=== PATIENT | female | born 1970 | race Caucasian/White ===

== ENCOUNTER 2025-10-09 16:10 | Outpatient (AMB) | payer OTHER, SELFPAY ==
--- NOTE | 2025-10-09 16:12 | A.OFFVIS_ITS ---
Intake Visit Reasons: seen 2022, vertigo? Allergies No Known Allergies Allergy (Verified 10/05/25 08:38) Medication List - Last Reconciled 10/09/25 by Magali Kovacs MD atorvastatin 40 mg PO DAILY clonazepam 1 mg PO BID PRN duloxetine 60 mg PO DAILY hydroxyzine HCl 25 mg PO BID levothyroxine 100 mcg PO DAILY trazodone 50 mg PO BEDTIME HPI Comments Details: 55yrs old woman with h/o migraines that have decreased with menopause , currently 1-2/ month to 1 in 3 months. They last few hours to 2-3 days. Has not had any Sumatriptan in afew years. She is sleeping well. She has always had balance problems and 2 months ago she had an episode where she was very unsteady and was falling that lasted 10-15 minutes. It was spinning around and was having trouble walking. . H/O problems with panic and phobias with fear of dying. She used to get migraines with her periods lasting 5-7 days with sonophobia and occasional nausea. Sumatriptan works well for her migraine. She was on Propranolol, amitriptyline and Topamax in the past. Gets nausea and sound sensitivity with migraine. She is having short term memory problems. Misplaces things. Drives fine. Not repetitive. CT scan of the head on 02/01/16 was normal. Hearing is fine and no tinnitus. No previous spells of vertigo. [facility] Medical History (Updated 10/09/25 @ 16:21 by Magali Kovacs MD) MCI (mild cognitive impairment) Migraine Anxiety and depression Review of Systems Const Details: Sleep:? Difficulty getting to sleep?denies.? Difficulty maintaining sleep?denies? .? Urge to move legs?denies.? Teeth grinding?denies.? Shouting or Kicking during sleep?denies.? Abnormal behavior during sleep?denies.? Excessive sleep?denies.? Snoring?denies.? Daytime sleepiness?denies.? ?? General/Constitutional:? Change in appetite?denies.? Chills?denies.? Fatigue?denies.? Fever?denies .? Weight gain?denies.? Weight loss?denies.? ?? Ophthalmologic:? Blurred vision?denies.? Diminished visual acuity?denies.? ?? ENT:? Stuffiness?denies.? Decreased hearing?denies.? Dry mouth?denies.? Ear pain?denies.? Nosebleed?denies.? Ringing in the ears?denies.? Sinus pain?denies .? Sore throat?denies.? Swollen glands?denies.? ?? Endocrine:? Cold intolerance?denies.? Excessive thirst?denies.? Frequent urination? denies.? Heat intolerance?denies.? ?? Respiratory:? Shortness of breath?denies.? Chest pain?denies.? Cough?denies.? ?? Breast:? Breast lump?denies.? Nipple discharge?denies.? ?? Cardiovascular:? Chest pain at rest?denies.? Chest pain with exertion?denies.? Claudication?denies.? Dizziness?denies.? Fluid accumulation in the legs?denies.? Irregular heartbeat?denies.? Palpitations?denies.? ?? Gastrointestinal:? Abdominal pain?denies.? Constipation?denies.? Diarrhea?denies.? Diffic ulty swallowing?denies.? Heartburn?denies.? Nausea?admits.? Rectal bleeding? denies.? ?? Hematology:? Easy bruising?denies.? Prolonged bleeding?denies.? ?? Genitourinary:? Frequent urination?denies.? Urgency?denies.? Incontinence?denies.? Erectile Dysfunction?denies.? ?? Musculoskeletal:? Neck pain?admits.? Back pain?denies.? Muscle aches?denies.? Painful joints?denies.? Sciatica?denies.? Weakness?denies.? ?? Podiatric:? Difficulty walking?denies.? Foot numbness?denies.? ?? Neurologic:? Difficulty swallowing?denies.? Balance difficulty?denies.? Coordination? normal.? Difficulty speaking?denies.? Dizziness?denies.? Fainting?denies.? Gait abnormality?denies.? Headache?that is chronic.? Loss of strength?denies.? Loss of use of extremity?denies.? Low back pain?denies.? Memory loss?denies.? Seizures?denies.? Tics?denies.? Tingling/Numbness?denies.? Transient loss of vision?denies.? Tremor?denies.? ?? Psychiatric:? Anxiety?admits.? Auditory/visual hallucinations?denies.? Delusions?denies .? Depressed mood?denies.? Stressors?denies.? Substance abuse?denies.? Suicidal thoughts?denies Physical Exam Neuro Other: General Examination: ? GENERAL APPEARANCE:?normal,?in no acute distress.? HEAD:?normocephalic,?atraumatic.? EYES:?sclera non-icteric,?conjunctiva clear.? EARS:?auditory canal clear,?tympanic membrane intact, clear.? NOSE:?no lesions.? ORAL CAVITY:?gums normal,?mucosa moist,?no lesions.? THROAT:?clear.? NECK/THYROID:?no cervical lymphadenopathy,?thyroid normal,?neck supple, full range of motion,?no carotid bruit.? SKIN:?no rashes,?no significant birthmarks.? HEART:?S1, S2 normal,?no murmurs.? LUNGS:?clear anteriorly and posteriorly.? CHEST:?no gross rib deformity,?clear to auscultation.? BACK:?normal exam of spine.? EXTREMITIES:?no edema.? PERIPHERAL PULSES:?normal.? PSYCH:?alert, oriented,?cognitive function intact,?cooperative with exam.? Neurological: ? Abnormal neurological findings:??none.? Mental Status:?alert and oriented X 3,?Normal attention, orientation, memory and affect.? Cranial Nerves:?Pupils are equal, round and reactive to light. Fundoscopy shows normal disc bilaterally. External occular muscles are intact. Visual de jesus are full, no ptosis. Face is symmetrical, no facial weakness or droop. Facial sensations are normal. Tongue protrudes in midline. Palate elevates symmetrically. Shoulder shrugging is normal..? Motor Examination:?Normal muscle tone, bulk and strength,?No atrophy or fasciculations,?No drift of the extended upper extremities,?Deep tendon reflexes are 2+?,?Plantars are flexor?.? Straight Leg Raising:?90 degrees.? Sensory Exam:?Normal light touch, temperature, pinprick, vibration and joint-position sensations?,?Rhomberg sign is absent.? Coordination:?no ataxia,?no titubation,?qoucgf-ki-bgqy, apng-nxvj-alei test and rapid alternating movements were normal.? Gait Exam:?Within normal limits.? Cerebellar Signs:?Lxjqkv-sw-vfls and wvnh-qz-gmbw is normal,?no dysdiadochokinesia?.? Extrapyramidal System:?No tremor, rigidity with normal facial expressions,?No bradykinesia, no bradyphrenia. Normal arm swing and posture. No propulsion or retropulsion.? Speech:?Normal,?no dysphasia or dysarthria..? Mini Mental Status Exam: ? Level of Consciousness:?Alert.? Orientation:?Knows correct year, month, date, day and season,?Knows correct city, county and state. Knows correct location and floor.? Registration:?Able to register 3 objects.? Attention:?Serial 7's performed accurately.? Recall:?Able to recall 3 out of 3 objects.? Language:?Normal spontaneous speech, fluency, repetition,naming, comprehension, reading and writing.? Total Score ?30/30.? Assessment & Plan Assessment & Plan (1) Migraine: Code(s): G43.909 - Migraine, unspecified, not intractable, without status migrainosus Category: Medical (2) MCI (mild cognitive impairment): Code(s): G31.84 - Mild cognitive impairment of uncertain or unknown etiology Category: Medical (3) Anxiety and depression: Code(s): F41.9 - Anxiety disorder, unspecified; F32.A - Depression, unspecified Category: Medical (4) Dizziness: Code(s): R42 - Dizziness and giddiness Category: Medical Plan MRI brain, Sumatriptan 100mg prn. EEG, Labs for memory Orders: Orders Vitamin B12 and Folate Today G31.84 - Mild cognitive impairment of uncertain or unknown etiology TSH reflex Free T4 Today G31.84 - Mild cognitive impairment of uncertain or unknown etiology EEG Routine Today G31.84 - Mild cognitive impairment of uncertain or unknown etiology MR head/brain wo con 4 Weeks G31.84 - Mild cognitive impairment of uncertain or unknown etiology, R42 - Dizziness and giddiness Coding Level of Care Code New Pt Level 5 (94821) Diagnoses Migraine G43.909 MCI (mild cognitive impairment) G31.84 Anxiety and depression F41.9; F32.A Dizziness R42
--- OUTSIDE RECORDS SUMMARY | 2025-10-09 17:25 | XMS_ITS | Clinical Summary ---
Author Organization [facility] [address] [place] [address] [place] [phone] Phone Care Team Providers Care Paper Machine Operator Name Role Phone Margaret Baker MD Primary Care Provider [phone] Allergies No known active allergies Medications clonazePAM (KlonoPIN) 1 mg tablet Take 1 tablet (1 mg total) by mouth 2 (two) times a day if needed for anxiety. 04/02/2021 Active calcium carbonate-vit D3-min 600 mg-10 mcg (400 unit) tablet Take 1 tablet by mouth 1 (one) time each day. Active SUMAtriptan (IMITREX) 100 mg tablet Take 100 mg by mouth daily as needed. May repeat dose once after 2 hours, if needed. Active multivitamin (MULTIPLE VITAMINS ORAL) Take 1 tablet by mouth 1 (one) time each day. Active DULoxetine (CYMBALTA) [address] capsule Take 1 capsule (60 mg total) by mouth 1 (one) time each day. 12/20/2024 Active traZODone (DESYREL) 50 mg tablet Take 1 tablet (50 mg total) by mouth at bedtime as needed for sleep. 12/08/2024 Active atorvastatin (LIPITOR) 40 mg tablet Take 1 tablet (40 mg total) by mouth at bedtime. 90 tablet 2 06/25/2025 Active levothyroxine (SYNTHROID, LEVOTHROID) 88 mcg tablet Take 1 tablet (88 mcg total) by mouth 1 (one) time each day before breakfast. SKIP WEDNESDAY 78 tablet 2 06/25/2025 Active Active Problems Problem Noted Date Diagnosed Date Obesity (BMI 30.0-34.9) 05/02/2021 Hyperlipidemia 12/07/2014 Anxiety 12/05/2014 Hypothyroid 12/05/2014 Migraines 12/05/2014 Panic attacks 12/05/2014 Encounters Date Type Department Care Team Description 08/21/2025 2:00 PM EDT Office Visit Adult Medicine [address] [phone] Kristi Aguirre PA Episode of dizziness (Primary Dx) 08/20/2025 Nurse Triage Adult Medicine [address] [phone] Margaret Baker MD from Last 3 Months Immunizations Immunization Administration Dates Next Due Influenza Quadravalent, MDCK , 0.5ml, preservative free (Flucelvax) 6mo and older 12/02/2023,10/13/2022,10/06/2021 Influenza trivalent, MDCK, 0 .5mL, preservative free (Flucelvax) 6mo and older 12/25/2024 Pfizer (ages 12 & older) SYMONE S-CoV-2 COVID-19, mRNA, LNP-S, yannick-sucrose, preservative free 12/22/2021 Pfizer SARS-CoV-2 COVID-19, mRNA, LNP-S, preservative free 12/22/2021,05/30/2021,05/17/2021 Td Tetanus diptheria, preser vative free (Tenivac) 7yo and older 12/25/2024 Tdap Tetanus diptheria acell ular pertussis (Boostrix; Adacel) 7yo and older 12/05/2014 Surgical History Surgery Date Site/Laterality Comments CATARACT EXTRACTION Bilateral Medical History Medical History Date Comments Hypothyroid 12/05/2014 Hyperlipidemia 12/07/2014 Anxiety 12/05/2014 Migraines 12/05/2014 Panic attacks 12/05/2014 Social History Tobacco Use Types Packs/Day Years Used Date Smoking Tobacco: Former Cigarettes Smokeless Tobacco: Never Tobacco Cessation:Counseling Given: Not Answered Comments:Started 19; max 1 PPD; quit 41 Alcohol Use Standard Drinks/Week Comments No 0 (1 standard drink = 0.6 oz pur e alcohol) Housing Instability Answer Date Recorde d Are you worried that in the next 2 months you may not have stable housing? No 12/25/2024 Food Access & Nutrition Answer Date Rec orded Do you have access to a vari ety of food including fruits and vegetables? No 12/25/2024 Access to Healthcare Answer Date Record ed Within the last 3 months, ho w many times did you visit the emergency department for your medical care? 0 12/25/2024 Health Literacy Answer Date Recorded How often do you need to hav e someone help you when you read instructions, pamphlets, or other written material from your doctor or pharmacy? Never 12/25/2024 Caregiver: How often do you need to have someone help you when you read instructions, pamphlets, or other written material from your doctor or pharmacy? Not on file 12/25/2024 Financial Risk Answer Date Recorded How hard is it for you to pa y for the very basics like food, housing, medical care, and air conditioning / heating? Not very hard 12/25/2024 Transportation Answer Date Recorded Has the lack of transportati on kept you from meetings, work, or from getting things needed for daily living? No Has the lack of transportati on kept you from medical appointments or from getting medications? No 12/25/2024 Social Isolation Answer Date Recorded How often do you feel lonely or isolated from th ose around you? Never 12/25/2024 Food Risk Answer Date Recorded Within the past 12 months we worried whether our food would run out before we got money to buy more. Never true 12/25/2024 Within the past 12 months th e food we bought just didn't last and we didn't have money to get more. Never true 12/25/2024 Dependent Care Answer Date Recorded Do you need help finding or paying for care for your loved ones. For example, children's librarian or elderly care for an older adult? No 12/25/2024 Education Answer Date Recorded Do you think completing more education or training, like finishing a GED, going to college, or learning a trade, would be helpful for you? No 12/25/2024 Employment and Income Answer Date Recor ded During the last four weeks, have you been actively looking for work? Yes 12/25/2024 Living Situation Answer Date Recorded What is your living situation? Unrecognized valu e 12/25/2024 Education Answer Date Recorded What is the highest level of school you have completed or the highest degree you have received? 12th grade 12/25/2024 Comments No Sex and Gender Information Value Date Recorded Sex Assigned at Not on file Legal Sex Female 3:03 PM EST Gender Identity Not on file Sexual Orientation Not on file Occupation Industry Job Start Date Job End Date Unemployed - since 1998; not disabled Not on file Not on file Not on file Obstetrics History Para Term AB IAB SAB Ectopic Multiple Livin g Live Births 0 0 0 0 Last Filed Vital Signs Vital Sign Reading Time Taken Comments Blood Pressure 100/70 08/21/2025 1:59 PM EDT Pulse 85 08/21/2025 1:59 PM EDT Temperature 35.9 C (96.7 F) 08/21/2025 1:59 PM EDT Respiratory Rate 14 08/21/2025 1:59 PM EDT Oxygen Saturation 96% 06/25/2025 2:26 PM EDT Inhaled Oxygen Concentration - - Weight 63.5 kg (140 lb) 08/21/2025 1:59 PM EDT Height 147.3 cm (4' 10 ) 08/21/2025 1:59 PM EDT Body Mass Index 29.26 08/21/2025 1:59 PM EDT Plan of Treatment Upcoming Encounters Date Type Department Care Team (Late st Contact Info) Description 01/09/2026 3:00 PM EST Office Visit Adult Medicine [facility] [address], [place] [phone] Margaret Baker MD [address], [place] Health Maintenance Due Date Last Done Comments Hepatitis B Vaccines (1 of 3 - 19+ 3-dose series) 1989 Cervical Cancer Screening: Pap Smear 09/10/2018 09/10/2015, 09/10/2015 Pneumococcal Vaccine: 50+ Years (1 of 1 - PCV) 2020 Zoster Vaccines (1 of 2) 2020 Colorectal Cancer Screening: Stool Based Tests (FOBT/FIT) 11/07/2022 HIV Screening 11/07/2022 Lung Cancer Screening (Low Dose CT) 11/07/2022 Depression Screening 11/29/2024 COVID-19 Vaccine (6 - 2025-26 season) 2025 05/24/2025, 12/22/2021, 12/22/2021, Additional history exists Influenza Vaccine (#1) 2025 , 12/02/2023, 10/13/2022, Additional history exists Social Influencers of Health Screening 12/25/2025 12/25/2024 Breast Cancer Screening 01/26/2027 01/26/20, 10/08/2022, 04/27/2018 Cholesterol Screening (Lipid Panel) 03/29/2030 03/29/2025, 12/02/2023 DTaP,Tdap,and Td Vaccines (3 - Td or Tdap) 12/25/2034 12/25/2024, 12/05/2014 RSV Immunization Adult Patients (1 - 1-dose 75+ series) 2045 Hepatitis C Screening Completed 12/05/2014 HIB Vaccines Aged Out No longer eligi ble based on patient's age to complete this topic HPV Vaccines Aged Out No longer eligi ble based on patient's age to complete this topic Hepatitis A Vaccines Aged Out No long er eligible based on patient's age to complete this topic IPV Vaccines Aged Out No longer eligi ble based on patient's age to complete this topic MMR Vaccines Aged Out No longer eligi ble based on patient's age to complete this topic Meningococcal ACWY Vaccine Aged Out N o longer eligible based on patient's age to complete this topic Meningococcal B Vaccine Aged Out No l onger eligible based on patient's age to complete this topic RSV Immunization Patients Under 20 months Aged Out No longer eligible based on patient's age to complete this topic Varicella Vaccines Aged Out No longer eligible based on patient's age to complete this topic Procedures Procedure Name Priority Date/Time Associated Diagnosis Comments LIPID PANEL WITH REFLEX TO DIRECT LDL Routine 03/29/2025 1:10 PM EDT Mixed hyperlipidemia MG MAMMO DIGITAL SCREENING W EULALIO BILAT Routine 01/26/2025 3:41 PM EST Encounter for screening mammogram for malignant neoplasm of breast HM HPV Routine 09/10/2015 HEPATITIS C SCREENING Routine 12/05/2014 from Last 3 Months or Most Recently Relevant to Health Maintenance Results * Lipid panel with reflex to direct LDL (03/29/2025 1:10 PM EDT) Cholesterol 156 0 - 200 mg/dL LAB CHEMISTRY METHOD 03/29/2025 5:42 PM EDT [facility] Triglycerides 118 0 - 150 mg/dL LAB CHEMISTRY METHOD 03/29/2025 5:42 PM EDT [facility] HDL 72 >=40 mg/dL LAB CHEMISTRY METHOD 03/29/2025 5:42 PM EDT [facility] LDL Calculated 60 0 - 100 mg/dL LAB CHEMISTRY METHOD 03/29/2025 5:42 PM EDT [facility] VLDL Cholesterol Sanjiv 23.6 mg/dL LAB CHEMISTRY METHOD 03/29/2025 5:42 PM EDT [facility] Non HDL Chol. (LDL+VLDL) 84 <145 mg/dL LAB CHEMISTRY METHOD 03/29/2025 5:42 PM EDT [facility] Chol/HDL Ratio 2.2 0.0 - 4.4 LAB CHEMISTRY METHOD 03/29/2025 5:42 PM EDT [facility] Blood Venous blood specimen / Unknown Venipuncture / Unknown 03/29/2025 1:10 PM EDT 03/29/2025 1:10 PM EDT us Kristi COWAN LAB BLOOD ORDERABLES Final Re sult [facility] [address] [place] [address], * MG Mammo Digital Screening w Eulalio bilat (01/26/2025 3:41 PM EST) Anatomical Region Laterality Modality Breast Bilateral Mammography 01/29/2025 1:41 PM EST Impressions 01/29/2025 2:04 PM EST 1. No mammographic evidence of malignancy 2. Heterogeneous breast parenchyma BI-RADS CATEGORY: 2 - BENIGN RECOMMENDATION: Screening bilateral mammogram is recommended in 1 year. Mammo Location: [facility], [address] [place] [address], [id number], . -------- FINAL REPORT -------- Dictated By: See Dawn Dictated Date: 01/29/2025 13:41 ET Assigned Physician: See Dawn Reviewed and Electronically Signed By: See Dawn Signed Date: 01/29/2025 14:04 ET Workstation ID: [id number] Transcribed By: Self Edit Transcribed Date: 01/29/2025 13:50 ET Narrative 01/29/2025 2:04 PM EST A BILATERAL DIGITAL 3D SCREENING MAMMOGRAPHY HISTORY: Routine screening. COMPARISON: Mammogram from 10/08/2022 Technique: Bilateral full field digital mammography (3D) was performed using standard CC and MLO projections CAD was used to evaluate this mammogram. FINDINGS: Right: No suspicious masses, groups of microcalcification or areas of architectural distortion identified. Stable typically benign parenchymal asymmetries. Left: No suspicious masses, groups of microcalcification or areas of architectural distortion identified. Stable typically benign parenchymal asymmetries. BREAST DENSITY: C - The breasts are heterogeneously dense which may obscure small masses. Procedure Note See Dawn MD - 01/29/2025 A BILATERAL DIGITAL 3D SCREENING MAMMOGRAPHY HISTORY: Routine screening. COMPARISON: Mammogram from 10/08/2022 Technique: Bilateral full field digital mammography (3D) was performedusing standard CC and MLO projections CAD was used to evaluate this mammogram. FINDINGS: Right: No suspicious masses, groups of microcalcification or areas ofarchitectural distortion identified. Stable typically benign parenchymalasymmetries. Left: No suspicious masses, groups of microcalcification or areas ofarchitectural distortion identified. Stable typically benign parenchymalasymmetries. BREAST DENSITY: C - The breasts are heterogeneously dense which mayobscure small masses. IMPRESSION: 1. No mammographic evidence of malignancy 2. Heterogeneous breast parenchyma BI-RADS CATEGORY: 2 - BENIGN RECOMMENDATION: Screening bilateral mammogram is recommended in 1 year. Mammo Location: [facility], [address], [place], [address], . -------- FINAL REPORT -------- Dictated By: See Dawn Dictated Date: 01/29/2025 13:41 ET Assigned Physician: See Dawn Reviewed and Electronically Signed By: See Dawn Signed Date: 01/29/2025 14:04 ET Workstation ID: [id number] Transcribed By: Self Edit Transcribed Date: 01/29/2025 13:50 ET Margaret Baker MD IMG BI PROCEDURES Final Result * Cervical Cancer Screening: HPV (09/10/2015) Pathologist [facility] Cervical Cancer Screening: HPV abstracted, negative Historical Provider HEALTH MAINTENANCE Final Result * Hepatitis C Screening (12/05/2014) Pathologist [facility] Hepatitis C Screening abstracted Historical Provider HEALTH MAINTENANCE Final Result from Last 3 Months or Most Recently Relevant to Health Maintenance Insurance [employer]AN Care Teams Paper Machine Operator Relationship Specialty Start Date End Date Margaret Baker MD [address] [place] [phone] PCP - General Internal Medicine 08/22/15
== END 2025-10-09 16:38 | disposition home or self-care (01) ==
PROVIDERS: PCP Internal Medicine; Visit Provider Psychiatry & Neurology Neurology
DX: G43.909 Migraine, unspecified, not intractable, without status migrainosus (principal); G31.84 Mild cognitive impairment of uncertain or unknown etiology; F41.9 Anxiety disorder, unspecified; F32.A Depression, unspecified; R42 Dizziness and giddiness
CPT/HCPCS: 99204

== ENCOUNTER → 2025-10-09 16:10 | Outpatient (BNVA) | payer OTHER, SELFPAY | PROVIDERS: PCP Internal Medicine; Visit Provider Psychiatry & Neurology Neurology | DX: R42 Dizziness and giddiness (principal); F41.9 Anxiety disorder, unspecified; F32.A Depression, unspecified; G31.84 Mild cognitive impairment of uncertain or unknown etiology; G43.909 Migraine, unspecified, not intractable, without status migrainosus | CPT/HCPCS: 99202 ==